=== PATIENT | male | born 1965 | race Two or more races ===

== ENCOUNTER 2023-06-03 22:04 | Emergency (ER) | payer BC ==
[2023-06-03 22:15] VITALS: RESP 18; TEMP 97.9; BMI 27.1
[2023-06-03] MEDS ORDERED: METOCLOPRAMIDE HCL INJECTION 10 MG/2 ML VIAL IVPB ONE (23:58)
[2023-06-03] MEDS ORDERED: ACETAMINOPHEN 1000 MG/100 ML BAG IVPB ONE (23:58)
[2023-06-03] MEDS ORDERED: SODIUM CHLORIDE 0.9% 500 ML INFUS.BAG IV ONE (23:58)
[2023-06-04] MEDS ORDERED: ACETAMINOPHEN INJECTION 100 ML IVPB ONE (00:28)
[2023-06-04] MEDS ORDERED: METOCLOPRAMIDE HCL INJECTION 10 MG/2 ML VIAL ONE (00:32)
[2023-06-04 00:41] LABS: BASO % 0.4 % (0-2.0); EOS % 1.1 % (0-4.5); HEMOGLOBIN 14.8 GM/dL (11.7-16.9); LYMPH % 21.8 % (8-40); MCHC 32.8 g/dl (32.0-35.9); MEAN CELL VOLUME 91.4 fl (80-96); MEAN PLT VOLUME 6.9 fl (7.5-11.1); MONO % 6.6 % (3.8-10.2); NEUT % 70.1 % (42.8-82.8); PLATELET COUNT 370 10^3/uL (134-434); RBC 4.92 M/mm3 (4.00-5.60); RDW 13.4 % (11.9-15.9); WHITE BLOOD COUNT 12.3 K/mm3 (4.0-10.0)
[2023-06-04 00:58] LABS: POTASSIUM 4.5 mmol/L (3.5-5.1)
[2023-06-04 01:01] LABS: ALBUMIN 4.3 g/dl (3.4-5.0)
[2023-06-04 01:03] LABS: CREATININE 1.3 mg/dL (0.55-1.3)
[2023-06-04 01:06] LABS: BILIRUBIN,TOTAL 0.5 mg/dL (0.2-1); TOT PROT 8.3 g/dl (6.4-8.2)
[2023-06-04 01:48] VITALS: PULSE 65
[2023-06-04] MEDS ORDERED: VALSARTAN 80 MG TABLET PO ONE (01:50)
[2023-06-04] MEDS ORDERED: VALSARTAN 40 MG TABLET PO ONE (01:53)
[2023-06-04 01:58] VITALS: BP 127/75
== END 2023-06-04 02:33 | disposition home or self-care (01) ==
LOC: JER 22:04
PROC: 3E033NZ Introduction of Analgesics, Hypnotics, Sedatives into Peripheral Vein, Percutaneous Approach (ICD-10-PCS; principal; 2023-06-03)
PROC: 3E033GC Introduction of Other Therapeutic Substance into Peripheral Vein, Percutaneous Approach (ICD-10-PCS; 2023-06-03)
DX: G43.909 Migraine, unspecified, not intractable, without status migrainosus (principal); R11.0 Nausea; H53.19 Other subjective visual disturbances
CPT/HCPCS: 36415; 70450-TC; 80053; 85025; 93005; 93010; 99285-25

== ENCOUNTER 2023-09-11 14:47 | Emergency (ER) | payer BC ==
[2023-09-11 15:16] VITALS: BP 173/94; PULSE 63; RESP 18; TEMP 97.4; BMI 27.1
[2023-09-11] MEDS ORDERED: ACETAMINOPHEN 1000 MG/100 ML BAG IVPB ONE (16:58)
[2023-09-11] MEDS ORDERED: LACTATED RINGERS SOLUTION 1000 ML INFUS.BAG IV ONE (16:59)
[2023-09-11] MEDS ORDERED: ONDANSETRON 4 MG/2 ML VIAL IVPB ONE (16:59)
[2023-09-11] MEDS ORDERED: ACETAMINOPHEN INJECTION 100 ML IVPB ONE (17:04)
[2023-09-11] MEDS ORDERED: ONDANSETRON 4 MG/2 ML VIAL ONE (17:04)
[2023-09-11 17:35] LABS: BASO % 0.1 % (0-2.0); EOS % 0.1 % (0-4.5); HEMATOCRIT 45.1 % (35.4-49); HEMOGLOBIN 14.9 GM/dL (11.7-16.9); LYMPH % 9.7 % (8-40); MCH 30.3 pg (25.7-33.7); MCHC 32.9 g/dl (32.0-35.9); MEAN CELL VOLUME 92.1 fl (80-96); MEAN PLT VOLUME 7.4 fl (7.5-11.1); MONO % 6.3 % (3.8-10.2); NEUT % 83.8 % (42.8-82.8); PLATELET COUNT 304 10^3/uL (134-434); RDW 14.5 % (11.9-15.9); WHITE BLOOD COUNT 17.5 K/mm3 (4.0-10.0)
[2023-09-11 18:53] LABS: ALBUMIN 3.9 g/dl (3.4-5.0); BLOOD UREA NITROGEN 17.2 mg/dL (7-18); MAGNESIUM 2.3 mg/dL (1.8-2.4)
[2023-09-11 18:56] LABS: CREATININE 1.3 mg/dL (0.55-1.3); PHOSPHOROUS 3.4 mg/dL (2.5-4.9)
[2023-09-11 18:58] LABS: BILIRUBIN,TOTAL 0.5 mg/dL (0.2-1)
[2023-09-11 21:55] LABS: EPI CELLS 2 /uL (0-25.1); HYALINE CASTS 0 /uL (0-3.1); URINE APPEARANCE CLEAR; URINE BACTERIA 4 /uL (0-1359); URINE BILIRUBIN NEGATIVE (NEGATIVE); URINE COLOR YELLOW; URINE GLUCOSE (UA) NEGATIVE (NEGATIVE); URINE KETONE NEGATIVE (NEGATIVE); URINE LEUK ESTERASE NEGATIVE (NEGATIVE); URINE NITRITE NEGATIVE (NEGATIVE); URINE PROTEIN NEGATIVE (NEGATIVE); URINE RBC 65 /uL (0-23.9); URINE UROBILINOGEN 0.2 mg/dL (0.2-1.0); URINE WBC 6 /uL (0-25.8)
== END 2023-09-11 22:58 | disposition home or self-care (01) ==
LOC: JER 14:47
PROC: 3E033NZ Introduction of Analgesics, Hypnotics, Sedatives into Peripheral Vein, Percutaneous Approach (ICD-10-PCS; principal; 2023-09-11)
PROC: 3E033GC Introduction of Other Therapeutic Substance into Peripheral Vein, Percutaneous Approach (ICD-10-PCS; 2023-09-11)
DX: R10.9 Unspecified abdominal pain (principal); M54.9 Dorsalgia, unspecified; R11.2 Nausea with vomiting, unspecified; N20.0 Calculus of kidney; Z20.822 Contact with and (suspected) exposure to COVID-19
CPT/HCPCS: 0241U-QW; 36415; 74176-TC; 80053; 81003; 83735; 84100; 85025; 86850; 86900; 86901; 87086; 93005; 93010; 99285-25

== ENCOUNTER 2024-04-28 23:13 | Emergency (ER) | payer BC ==
[2024-04-28 23:27] VITALS: TEMP 97.7; BMI 25.1
[2024-04-29 00:03] VITALS: BP 139/82; PULSE 79; RESP 19
[2024-04-29] MEDS ORDERED: ACETAMINOPHEN INJECTION 100 ML ONE (00:23)
[2024-04-29] MEDS ORDERED: METOCLOPRAMIDE HCL INJECTION 10 MG/2 ML VIAL ONE (00:23)
[2024-04-29] MEDS: SODIUM CHLORIDE 0.9% 500 ML INFUS.BAG IV ONE (00:30)
[2024-04-29] MEDS: METOCLOPRAMIDE HCL INJECTION 10 MG/2 ML VIAL IVPB ONE (00:30)
[2024-04-29] MEDS: ACETAMINOPHEN 1000 MG/100 ML BAG IVPB ONE (00:47)
[2024-04-29 00:53] LABS: BASO % 0.2 % (0-2.0); HEMATOCRIT 40.6 % (35.4-49); HEMOGLOBIN 13.8 GM/dL (11.7-16.9); LYMPH % 6.3 % (8-40); MCH 31.1 pg (25.7-33.7); MCHC 33.9 g/dl (32.0-35.9); MEAN CELL VOLUME 91.7 fl (80-96); MEAN PLT VOLUME 7.4 fl (7.5-11.1); MONO % 3.1 % (3.8-10.2); NEUT % 90.4 % (42.8-82.8); PLATELET COUNT 268 10^3/uL (134-434); RBC 4.43 M/mm3 (4.00-5.60); RDW 13.4 % (11.9-15.9)
[2024-04-29 01:12] LABS: POTASSIUM 4.9 mmol/L (3.5-5.1)
[2024-04-29 01:14] LABS: CALCIUM 8.8 mg/dL (8.5-10.1)
[2024-04-29 01:15] LABS: ALBUMIN 3.9 g/dl (3.4-5.0); BLOOD UREA NITROGEN 22.6 mg/dL (7-18)
[2024-04-29 01:18] LABS: CREATININE 1.3 mg/dL (0.55-1.3)
[2024-04-29 01:19] LABS: BILIRUBIN,TOTAL 0.4 mg/dL (0.2-1); TOT PROT 7.7 g/dl (6.4-8.2)
[2024-04-29] MEDS ORDERED: KETOROLAC TROMETHAMINE 15 MG/ML VIAL ONE (03:49)
[2024-04-29] MEDS: KETOROLAC TROMETHAMINE 15 MG/ML VIAL IVPUSH ONE (03:50)
== END 2024-04-29 04:00 | disposition home or self-care (01) ==
LOC: JER 23:13
PROC: 3E033NZ Introduction of Analgesics, Hypnotics, Sedatives into Peripheral Vein, Percutaneous Approach (ICD-10-PCS; principal; 2024-04-29)
PROC: 3E0333Z Introduction of Anti-inflammatory into Peripheral Vein, Percutaneous Approach (ICD-10-PCS; 2024-04-29)
PROC: 3E033GC Introduction of Other Therapeutic Substance into Peripheral Vein, Percutaneous Approach (ICD-10-PCS; 2024-04-29)
DX: R05.1 Acute cough (principal); R11.2 Nausea with vomiting, unspecified; R19.7 Diarrhea, unspecified; R51.9 Headache, unspecified; R50.9 Fever, unspecified; Z20.822 Contact with and (suspected) exposure to COVID-19
CPT/HCPCS: 0241U-QW; 36415; 71046-TC-FY; 80053; 85025; 99284-25; J0131